=== PATIENT | male | born 1995 | race Caucasian/White ===

== ENCOUNTER 2023-08-13 09:11 | Emergency (ER) | payer OTHER ==
[~2023-08-13] VITALS: Ht 180.3 cm; Wt 97.5 kg
[2023-08-13 09:14] VITALS: BP 140/92; PULSE 93; RESP 20; TEMP 97.9; O2SAT 100
[2023-08-13] MEDS ORDERED: ONDANSETRON 4 MG/2 ML VIAL IVP ONE (09:45)
[2023-08-13] MEDS ORDERED: MORPHINE SULFATE 4 MG/ML SYR IVP ONE (09:45)
[2023-08-13] MEDS ORDERED: KETOROLAC 30 MG/ML VIAL IVP ONE (09:45)
[2023-08-13] MEDS ORDERED: NACL 0.9% 1,000 ML IV ONE (09:45)
[2023-08-13 09:53] LABS: BASOPHILS % (AUTO) 0.4 % (0.0-2.0); EOSINOPHILS # (AUTO) 0.1 K/uL (0-0.4); EOSINOPHILS % (AUTO) 1.2 % (0.0-4.0); HEMATOCRIT 44.2 % (36-52); HEMOGLOBIN 15.3 g/dL (12.0-18.0); LYMPHOCYTES # (AUTO) 2.2 K/uL (2.0-11.5); LYMPHOCYTES % (AUTO) 32.7 % (20.5-51.1); MEAN CORPUSCULAR HEMOGLOBIN 30 pg (27-31); MEAN CORPUSCULAR HGB CONC 35 g/dL (33-37); MONOCYTES # (AUTO) 0.6 K/uL (0.8-1.0); MONOCYTES % (AUTO) 8.4 % (1.7-9.3); NEUTROPHILS # (AUTO) 3.8 K/uL (1.8-7.7); NEUTROPHILS % (AUTO) 57.3 % (42.2-75.2); PLATELET COUNT (AUTO) 248 K/uL (140-450); RED BLOOD CELL COUNT(AUTO) 5.14 MIL/uL (4.20-6.10); RED CELL DISTRIBUTION WIDTH 13.1 % (11.6-13.7); WHITE BLOOD COUNT (AUTO) 6.7 K/uL (4.8-10.8)
[2023-08-13 10:04] VITALS: O2SAT 100
[2023-08-13 10:34] LABS: ALBUMIN 3.6 g/dL (3.4-5.0); ANION GAP 15.1 (8-16); CALCIUM 8.5 mg/dL (8.5-10.1); CARBON DIOXIDE 25.1 mmol/L (21-32); CREATININE 1.1 mg/dL (0.6-1.3); POTASSIUM 4.2 mmol/L (3.5-5.1); TOTAL BILIRUBIN 0.5 mg/dL (0.0-1.0); TOTAL PROTEIN, SERUM 6.9 g/dL (6.4-8.2)
[2023-08-13 11:34] LABS: APPEARANCE,URINE CLEAR (CLEAR); BILIRUBIN,URINE NEGATIVE (NEGATIVE); BLOOD, URINE 3+ (NEGATIVE); COLOR,URINE YELLOW (YELLOW); LEUKOCYTE ESTERASE ,URINE NEGATIVE (NEGATIVE); NITRITE, URINE NEGATIVE (NEGATIVE); PH,URINE 6.5 (5.0-9.0); PROTEIN,URINE NEGATIVE (NEGATIVE); UGLUCOSE NEGATIVE (NEGATIVE); UROBILINOGEN,URINE 0.2 EU/dL (0.2 - 1)
[2023-08-13 11:37] LABS: BACTERIA,URINE 0-2 /HPF (None Seen); RBC,URINE 11-20 (MOD) /HPF (0-5); WBC,URINE 0 /HPF (0-5)
[2023-08-13 11:38] LABS: MUCUS,URINE None Seen /LPF (None Seen); SQUAMOUS EPITHELIAL CELL,UR 0-3 (FEW) /LPF (0-3 (FEW))
[2023-08-13] MEDS ORDERED: ACET-5629 PO (12:46)
[2023-08-13] MEDS ORDERED: IBUP-2213 PO (12:46)
[2023-08-13 13:28] VITALS: BP 140/92; PULSE 93; RESP 20; TEMP 97.9
== END 2023-08-13 13:32 | disposition home or self-care (01) ==
LOC: MED 09:11
DX: N20.0 Calculus of kidney (principal); Z79.899 Other long term (current) drug therapy; Z79.1 Long term (current) use of non-steroidal anti-inflammatories (NSAID)
CPT/HCPCS: 36415; 74176; 80053; 81001; 83690; 85025; 96361; 96374; 96375; 99285; J1885; J2270; J2405; J7030